=== PATIENT | female | born 1990 | race African-American/Black ===

== ENCOUNTER 2018-09-02 13:59 | Emergency (ER) | payer OTHER ==
[~2018-09-02] VITALS: Ht 165.1 cm; Wt 72.1 kg
[~2018-09-02 13:59] MED LIST: CIPROFLOXACIN500 M1 PO; PRENATAL
[2018-09-02 14:52] LABS: ABSOLUTE NEUTROPHILS 7.3 thou/uL (1.4-8.2); BASOPHILS 0.3 % (0.0-2.0); EOSINOPHILS 3.1 % (0.0-3.0); HEMATOCRIT 31.1 % (37.0-47.0); HEMOGLOBIN 10.7 gm/dL (12.0-15.0); MCH 30.4 pg (26.0-34.0); MCHC 34.4 g/dL (28.0-37.0); MCV 88.3 fL (80.0-100.0); PLATELET COUNT 199 thou/uL (150-400); POLYS 70.6 % (36.0-66.0); RBC 3.52 mil/uL (4.20-5.00); RDW 13.3 % (10.5-14.5); WBC 10.3 thou/uL (4.0-11.0)
[2018-09-02 14:59] LABS: URINE BILIRUBIN NEGATIVE (Negative); URINE BLOOD 3+ (Negative); URINE CLARITY SL HAZY; URINE COLOR YELLOW; URINE GLUCOSE-RANDOM* NEGATIVE (Negative); URINE KETONES NEGATIVE (Negative); URINE LEUKOCYTES 1+ (Negative); URINE NITRITE NEGATIVE (Negative); URINE PROTEIN (DIPSTICK) NEGATIVE (Negative); URINE SPECIFIC GRAVITY 1.015 (1.005-1.035); URINE UROBILINOGEN 0.2 E.U./dl (0.2-1.0)
[2018-09-02 14:59] LABS: CALCIUM 8.8 mg/dL (8.5-10.1); CREATININE 0.7 mg/dL (0.6-1.0); POTASSIUM 3.4 mmol/L (3.5-5.1)
[2018-09-02 15:06] LABS: BACTERIA 1-9 Few /HPF (None Seen); CASTS None Seen /LPF (None Seen); CRYSTALS None Seen /LPF (None Seen); SQUAMOUS >10 Many /LPF (0-3); URINE RBC None Seen /HPF (0-2); URINE WBC 6-15 Few /HPF (0-5)
[2018-09-02 15:06] LABS: ALBUMIN 3.1 g/dL (3.4-5.0); APTT 26.4 Seconds (24.5-32.8); PROTIME 9.9 Seconds (9.3-11.4); TOTAL BILIRUBIN 0.2 mg/dL (<0.1-1.0); TOTAL PROTEIN 6.8 g/dL (6.4-8.2)
[2018-09-02] MEDS ORDERED: KEFLEX500 M1 PO (16:41)
[2018-09-02 17:29] VITALS: BP 119/79
== END 2018-09-02 17:30 | disposition home or self-care (01) ==
LOC: ER 13:59
PROVIDERS: Physician Assistant
DX: O20.0 Threatened abortion (principal); Z3A.12 12 weeks gestation of pregnancy; O23.41 Unspecified infection of urinary tract in pregnancy, first trimester